=== PATIENT | female | born 1985 | race Caucasian/White ===

== ENCOUNTER 2021-09-24 14:47 | Emergency (ER) | payer MEDICAID ==
[2021-09-24] MEDS ORDERED: methylPREDNISolone Sod Succ/PF 125 MG/2 ML VIAL ONE (16:20)
[2021-09-24] MEDS ORDERED: Famotidine/PF 20 mg/2ml Vial ONE (16:21)
[2021-09-24] MEDS ORDERED: diphenhydrAMINE 50 MG/ML VIAL ONE (16:21)
== END 2021-09-24 18:17 | disposition home or self-care (01) ==
LOC: CSHERS 14:47
DX: T78.1XXA Other adverse food reactions, not elsewhere classified, initial encounter (principal)
CPT/HCPCS: 96374; 96375; J1200; J2930; S0028

== ENCOUNTER 2022-06-26 13:58 | Emergency (ER) | payer MEDICAID ==
[2022-06-26] MEDS ORDERED: HYDROcodone/Acetaminophen 5/325 mg Tablet ONE (15:15)
== END 2022-06-26 15:16 | disposition home or self-care (01) ==
LOC: CSHERS 13:58
DX: K08.89 Other specified disorders of teeth and supporting structures (principal); E03.9 Hypothyroidism, unspecified; G43.909 Migraine, unspecified, not intractable, without status migrainosus; J45.909 Unspecified asthma, uncomplicated
CPT/HCPCS: 99282